=== PATIENT | male | born 1930 | race Caucasian/White ===

== ENCOUNTER 2019-03-23 13:40 | Emergency (ER) | payer OTHER, BC ==
--- OUTSIDE RECORDS SUMMARY | 2019-03-23 13:42 | XMS REPORT ---
:1930 Author Organization eClinicalWorks Care Team Providers Name Role Phone Juan Carrillo Provider Role Unavailable Allergies, Adverse Reactions, Alerts Substance Reaction Event Type N.K.D.A. Info Not Available Non Drug Allergy Problems Problem Type Condition Code Onset Dates Condition Status Assessment Pain of left shoulder joint on M25.512 Active movement Assessment Sprain of left rotator cuff S43.422A Active capsule, initial encounter Medications Medication Code Code Instructions Start End Status Dosage System Date Date Clopidogrel [facility] 57370701984 75 MG Oral Active not Bisulfate defined Lisinopril-Hydr [facility] 44669881393 20-12.5 MG Oral Active not ochlorothiazide defined Simvastatin ND 43447463631 40 MG Oral Active not defined Results No Known Results Summary Purpose eClinicalWorks Submission
--- OUTSIDE RECORDS SUMMARY | 2019-03-23 13:42 | XMS REPORT | Clinical Summary ---
:1930 Author Organization [facility] Address [address] [place] [address] Care Team Providers Name Role Phone Stu Kingston MD Primary Care Provider Allergies Active Allergy Reactions Severity Noted Date Comments No Known Drug Allergies Medications Medication Sig Dispensed Refills Start Date End Date Status risedronate TK ONE T PO 11 11/14/2016 Active (ACTONEL) 150 MG ONCE A MONTH tablet ON AN EMPTY STOMACH WITH 8 OUNCES OF WATER AND DO NOT LAY DOWN FOR ONE HOUR aspirin (ECOTRIN) 81 Take 81 mg by 0 Active MG enteric coated mouth daily. tablet simvastatin (ZOCOR) Take 1 tablet 90 tablet 3 07/10/2018 Active 40 MG (40 mg total) tabletIndications: by mouth Hyperlipidemia, daily. unspecified hyperlipidemia type lisinopril-hydrochlo Take 1 tablet 90 tablet 3 07/10/2018 Active rothiazide by mouth (PRINZIDE,ZESTORETIC daily. 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 clopidogrel (PLAVIX) Take 1 tablet 90 tablet 3 03/13/2017 09/18/2018 Discontinued 75 mg (75 mg total) tabletIndications: by mouth Coronary artery daily. disease involving anvik heart with angina pectoris, unspecified vessel or lesion type (HCC) simvastatin (ZOCOR) Take 1 tablet 90 tablet 3 03/21/2017 03/26/2018 Discontinued 40 MG (40 mg total) tabletIndications: by mouth Hyperlipidemia, daily. unspecified hyperlipidemia type lisinopril-hydrochlo TAKE 1 TABLET 90 tablet 0 03/12/2018 07/10/2018 Discontinued rothiazide BY MOUTH (PRINZIDE,ZESTORETIC EVERY DAY ) 20-12.5 mg per tabletIndications: Essential hypertension simvastatin (ZOCOR) TAKE 1 30 tablet 0 03/26/2018 05/14/2018 Discontinued 40 MG TABLET(40 MG) tabletIndications: BY MOUTH Hyperlipidemia, DAILY unspecified hyperlipidemia type simvastatin (ZOCOR) TAKE 1 TABLET 30 tablet 0 05/14/2018 07/10/2018 Discontinued 40 MG BY MOUTH tabletIndications: DAILY Hyperlipidemia, unspecified hyperlipidemia type lisinopril-hydrochlo TAKE 1 TABLET 30 tablet 0 06/15/2018 07/10/2018 Discontinued rothiazide BY MOUTH (PRINZIDE,ZESTORETIC EVERY DAY ) 20-12.5 mg per tabletIndications: Essential hypertension lisinopril-hydrochlo Take 1 tablet 0 07/10/2018 Discontinued rothiazide by mouth (PRINZIDE,ZESTORETIC daily. ) 20-12.5 mg per tablet Active Problems Problem Noted Date Hyperlipidemia 07/16/2018 Essential hypertension 07/16/2018 Bruit 02/07/2017 Bilateral carotid artery disease 02/07/2017 Encounters Date Type Specialty Care Team Description 09/20/2018 Refill Cardiology Aby Nogueira MA Med Refill 09/18/2018 Refill Cardiology Jose Daniel Abbasi MD Med Refill 07/10/2018 Office Visit Cardiology Jose Daniel Abbasi MD Bilateral carotid artery disease, unspecified type (HCC) (Primary Dx); Essential hypertension; Hyperlipidemia, unspecified hyperlipidemia type 06/15/2018 Refill Cardiology Jose Daniel Abbasi MD Med Refill 05/14/2018 Refill Cardiology Jose Daniel Abbasi MD Med Refill 03/26/2018 Refill Cardiology Jose Daniel Abbasi MD Med Refill after 03/22/2018 Family History Medical History Relation Name Comments No Known Problems Father Alzheimer's disease Mother Relation Name Status Comments Father Mother Social History Tobacco Use Types Packs/Day Years Used Date Former Smoker Cigarettes Smokeless Tobacco: Never Used Comments: 3 yrs ago Alcohol Use Drinks/Week oz/Week Comments Yes Sex Assigned at Date Recorded Not on file Job Start Date Occupation Industry Not on file Not on file Not on file Travel History Travel Start Travel End No recent travel history available. 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 Pulse 71 07/10/2018 11:14 AM SPRAY TECHNICIAN Temperature - - Respiratory Rate - - Oxygen Saturation - - Inhaled Oxygen Concentration - - Weight 52.6 kg (116 lb) 07/10/2018 11:14 AM SPRAY TECHNICIAN Height 152.4 cm (5') 07/10/2018 11:14 AM SPRAY TECHNICIAN Body Mass Index 22.65 07/10/2018 11:14 AM SPRAY TECHNICIAN Plan of Treatment Date Type Specialty Care Team Description 07/09/2019 Office Visit Cardiology Jose Daniel Abbasi MD [address] [address] Health Maintenance Due Date Last Done Comments SHINGLES VACCINES (#1) 1980 65+ PNEUMOCOCCAL VACCINE (1 of 2 - PCV13) 12/03/1995 INFLUENZA VACCINE 04/04/2019 Procedures Procedure Name Priority Date/Time Associated Diagnosis Comments ECG 12-LEAD Routine 07/10/2018 11:07 AM Essential hypertension Results for this SPRAY TECHNICIAN procedure are in the results section. after 03/22/2018 Results ECG 12 lead (07/10/2018 11:07 AM SPRAY TECHNICIAN) Ventricular rate 64 [facility] Atrial rate 64 [facility] WI interval 202 [facility] QRSD interval 82 [facility] QT interval 396 [facility] QTC interval 408 [facility] P axis 1 82 [facility] QRS axis 1 -46 [facility] T wave axis 78 [facility] EKG impression Normal sinus [facility] rhythm-Left axis deviation-Poor R wave progression-Electronica lly Signed By Isael ARZATE, Richard ([id number]) on 07/10/2018 2:18:16 PM Specimen Performing Organization Address City/State/Zipcode Phone Number [facility] [address] [place] [address] after 03/22/2018 Insurance Payer Benefit Plan / Subscriber ID Effective Dates Phone Address Type Group MEDICARE MEDICARE PART A xxxxxxxxxxx 1995-Present [place], [place] Medicare AND B BCBS BCBS CHOICE xxxxxxxxx 2012-Present PPO PPO/[employer] EM[employer] PPO [address] ([address]) [id number] [place] [address] Advance Directives Patient has advance care planning documents on file. For more information, please contact:Ritesh Pichardo[address] [place] [address]
--- NOTE | 2019-03-23 14:43 | ER ---
Nurse's Notes [facility] Name: Aron Tiwari Age: 88 yrs Sex: Male : 1930 Arrival Date: 03/23/2019 Time: 13:43 Bed 19 Private MD: Diagnosis: Skin tear right hand;Skin tear right forearm;Fall on same level from slipping, tripping and stumbling Presentation: 03/23 14:02 Presenting complaint: Patient states: "I was at the grocery store and I tripped I got aj1 two scraps on my arm and I'm on blood thinners" Patient denies hitting his head. skin tears noted to right arm and right hand. Transition of care: patient was not received from another setting of care. Onset of symptoms was March 23, 2019. Risk Assessment: Do you want to hurt yourself or someone else? Patient reports no desire to harm self or others. Initial Sepsis Screen: Does the patient meet any 2 criteria? No. Patient's initial sepsis screen is negative. Does the patient have a suspected source of infection? No. Patient's initial sepsis screen is negative. Care prior to arrival: None. 14:02 Method Of Arrival: Ambulatory aj1 14:02 Acuity: HANNAH 4 aj1 Triage Assessment: 14:11 General: Appears in no apparent distress. comfortable, Behavior is calm, cooperative, aj1 appropriate for age. Pain: Denies pain. Neuro: Level of Consciousness is awake, alert, obeys commands, Oriented to person, place, time, situation. Cardiovascular: Patient's skin is warm and dry. Respiratory: Airway is patent Respiratory effort is even, unlabored, Respiratory pattern is regular, symmetrical. Historical: - Allergies: 14:11 No Known Allergies; aj1 - Home Meds: 14:11 simvastatin 40 mg Oral tab 1 tab once daily [Active]; clopidogrel 75 mg oral tab 1 tab aj1 once daily [Active]; lisinopril-hydrochlorothiazide oral oral [Active]; - PMHx: 14:11 Hypertension; cardiac stent; aj1 - Immunization history:: Flu vaccine is up to date. - Social history:: Smoking status: Patient/guardian denies using tobacco. - Ebola Screening: : Patient denies travel to an Ebola-affected area in the 21 days before illness onset. Screenin:45 Abuse screen: Denies threats or abuse. Nutritional screening: No deficits noted. em Tuberculosis screening: No symptoms or risk factors identified. Fall Risk Fall in past 12 months (25 points). No IV (0 pts). Gait- Weak (10 pts.). Mental Status- Total Haines Fall Scale indicates. Assessment: 14:45 General: Appears in no apparent distress. comfortable, Behavior is calm, cooperative. em Pain: Denies pain. Neuro: Level of Consciousness is awake, alert, obeys commands, Oriented to person, place, time, situation, Moves all extremities. Cardiovascular: Capillary refill < 3 seconds Patient's skin is warm and dry. Respiratory: Airway is patent Respiratory effort is even, unlabored, Respiratory pattern is regular, symmetrical. Derm: Skin is fragile, is thin, has skin tears on right hand, right forearm Skin is pink, warm \\T\\ dry. Musculoskeletal: Capillary refill < 3 seconds, Range of motion: intact in all extremities. 15:00 Reassessment: I agree with the assessment made by Bobo LIZAMA. Vital Signs: 14:11 BP 149 / 57; Pulse 101; Resp 20; Temp 99.2; Pulse Ox 96% on R/A; Weight 47.63 kg (R); aj1 Height 5 ft. 5 in. (165.10 cm) (R); Pain 0/10; 14:11 Body Mass Index 17.47 (47.63 kg, 165.10 cm) aj1 ED Course: 13:43 Patient arrived in ED. mr 14:09 Triage completed. aj1 14:11 Arm band placed on Patient placed in an exam room. aj1 14:14 Lorene Mars FNP-C [facility]. kb 14:15 Gumaro Strong MD is Attending Physician. kb 14:24 Bobo Finley LVN is Primary Nurse. em 14:43 Wound care: to laceration located on right hand and right arm was cleaned with 5 Hibiclens, irrigated with normal saline. 14:45 Patient has correct armband on for positive identification. Bed in low position. Call 5 light in reach. Side rails up X 1. 15:20 Wound care: to skin tears located on right hand and right forearm was dressed with em Neosporin, ABD pads, steri strips, Patient tolerated well. 15:24 No provider procedures requiring assistance completed. Patient did not have IV access em during this emergency room visit. 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 Exp: em 11/24/2020. Lot #: [id number]. } Route: IM; Site: right deltoid; 15:25 Follow up: Response: No adverse reaction em Outcome: 14:43 Discharge ordered by MD. oliver 15:24 Discharged to home ambulatory. em 15:24 Condition: good 15:24 Discharge instructions given to patient, Instructed on discharge instructions, follow up and referral plans. Demonstrated understanding of instructions, follow-up care. 15:26 Patient left the ED. em Signatures: Lorene Mars, WORK COUNSELOR-C WORK COUNSELOR-Ckb Deirdre Galvez RN RN Get Brito RN RN sg Rivera, Mary mr Munoz, Edgar, SOLICITOR PATENT SOLICITOR PATENT Jeannie Goldstein [facility]
--- NOTE | 2019-03-23 14:44 | EDPHYS ---
Physician Documentation [facility] Name: Aron Tiwari Age: 88 yrs Sex: Male : 1930 Arrival Date: 03/23/2019 Time: 13:43 Bed 19 Private MD: ED Physician Gumaro Strong HPI: 03/23 14:32 This 88 yrs old Male presents to ER via Ambulatory with complaints of Fall kb Injury, Laceration To Arm. 14:32 Details of fall: The patient fell from an upright position, while walking. Onset: The kb symptoms/episode began/occurred just prior to arrival. Associated injuries: The patient sustained dorsum of right hand and right forearm, skin tear. Severity of symptoms: At their worst the symptoms were mild, in the emergency department the symptoms are unchanged. The patient has not experienced similar symptoms in the past. The patient has not recently seen a physician. Pt reports he tripped at the grocery store and hit his arm causing skin tears. Came because he is on blood thinners and was worried about the bleeding. . Historical: - Allergies: 14:11 No Known Allergies; aj1 - Home Meds: 14:11 simvastatin 40 mg Oral tab 1 tab once daily [Active]; clopidogrel 75 mg oral tab 1 tab aj1 once daily [Active]; lisinopril-hydrochlorothiazide oral oral [Active]; - PMHx: 14:11 Hypertension; cardiac stent; aj1 - Immunization history:: Flu vaccine is up to date. - Social history:: Smoking status: Patient/guardian denies using tobacco. - Ebola Screening: : Patient denies travel to an Ebola-affected area in the 21 days before illness onset. ROS: 14:30 Constitutional: Negative for fever, chills, and weight loss, Cardiovascular: Negative kb for chest pain, palpitations, and edema, Respiratory: Negative for shortness of breath, cough, wheezing, and pleuritic chest pain, Abdomen/GI: Negative for abdominal pain, nausea, vomiting, diarrhea, and constipation, MS/Extremity: Negative for injury and deformity, Neuro: Negative for headache, weakness, numbness, tingling, and seizure. 14:30 Skin: Positive for of the dorsum of right hand and right forearm, skin tear. Exam: 14:30 Constitutional: This is a well developed, well nourished patient who is awake, alert, kb and in no acute distress. Head/Face: Normocephalic, atraumatic. Neck: Trachea midline, no thyromegaly or masses palpated, and no cervical lymphadenopathy. Supple, full range of motion without nuchal rigidity, or vertebral point tenderness. No Meningismus. Chest/axilla: Normal chest wall appearance and motion. Nontender with no deformity. No lesions are appreciated. Cardiovascular: Regular rate and rhythm with a normal S1 and S2. No gallops, murmurs, or rubs. Normal PMI, no JVD. No pulse deficits. Respiratory: Lungs have equal breath sounds bilaterally, clear to auscultation and percussion. No rales, rhonchi or wheezes noted. No increased work of breathing, no retractions or nasal flaring. Abdomen/GI: Soft, non-tender, with normal bowel sounds. No distension or tympany. No guarding or rebound. No evidence of tenderness throughout. MS/ Extremity: Pulses equal, no cyanosis. Neurovascular intact. Full, normal range of motion. Neuro: Awake and alert, GCS 15, oriented to person, place, time, and situation. Cranial nerves II-XII grossly intact. Motor strength 5/5 in all extremities. Sensory grossly intact. Cerebellar exam normal. Normal gait. 14:30 Skin: injury, skin tears to right forearm and right hand. Bleeding controlled with pressure dressing.. Vital Signs: 14:11 BP 149 / 57; Pulse 101; Resp 20; Temp 99.2; Pulse Ox 96% on R/A; Weight 47.63 kg (R); aj1 Height 5 ft. 5 in. (165.10 cm) (R); Pain 0/10; 14:11 Body Mass Index 17.47 (47.63 kg, 165.10 cm) aj1 MDM: 14:15 Patient medically screened. kb 14:29 Data reviewed: vital signs, nurses notes. Data interpreted: Pulse oximetry: on room air kb is 96 %. Interpretation: normal. Counseling: I had a detailed discussion with the patient and/or guardian regarding: the historical points, exam findings, and any diagnostic results supporting the discharge/admit diagnosis, the need for outpatient follow up, a family practitioner, to return to the emergency department if symptoms worsen or persist or if there are any questions or concerns that arise at home. 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 Exp: em 11/24/2020. Lot #: [id number]. } Route: IM; Site: right deltoid; 15:25 Follow up: Response: No adverse reaction em Disposition: 18:49 Co-signature as Attending Physician, Gumaro Strong MD. Disposition: 03/23/19 14:43 Discharged to Home. Impression: Skin tear right hand, Skin tear right forearm, Fall on same level from slipping, tripping and stumbling. - Condition is Stable. - Discharge Instructions: Skin Tear Care, [id number]. - Medication Reconciliation Form, Thank You Letter, Antibiotic Education, Prescription Opioid Use form. - Follow up: Emergency Department; When: As needed; Reason: Worsening of condition. Follow up: Private Physician; When: 2 - 3 days; Reason: Recheck today's complaints, Continuance of care, Re-evaluation by your physician. Signatures: Lorene Mars, PICKING MACHINE OPERATOR-C PICKING MACHINE OPERATOR-Ckb Deirdre Galvez, RN RN aj1 Bobo Finley, COOK CAMP COOK CAMP em Gumaro Strong MD MD Corrections: (The following items were deleted from the chart) 15:26 14:43 03/23/2019 14:43 Discharged to Home. Impression: Skin tear right hand; Skin tear em right forearm; Fall on same level from slipping, tripping and stumbling. Condition is Stable. Discharge Instructions: Skin Tear Care, [id number]. Forms are Medication Reconciliation Form, Thank You Letter, Antibiotic Education, Prescription Opioid Use. Follow up: Emergency Department; When: As needed; Reason: Worsening of condition. Follow up: Private Physician; When: 2 - 3 days; Reason: Recheck today's complaints, Continuance of care, Re-evaluation by your physician. kb
[2019-03-23] MEDS ORDERED: TETANUS & DIPHTHERIA TOX,ADULT 0.5 ML VIAL ONE (15:00)
== END 2019-03-23 15:26 | disposition home or self-care (01) ==
LOC: ER 13:40
DX: S51.811A Laceration without foreign body of right forearm, initial encounter (principal); W01.10XA Fall on same level from slipping, tripping and stumbling with subsequent striking against unspecified object, initial encounter; Y93.89 Activity, other specified; Y92.512 Supermarket, store or market as the place of occurrence of the external cause; Z23 Encounter for immunization; Z95.818 Presence of other cardiac implants and grafts; I10 Essential (primary) hypertension
CPT/HCPCS: 90471; 90714; 99284

== ENCOUNTER 2019-10-15 20:27 | Inpatient (IN) | payer OTHER, BC ==
--- OUTSIDE RECORDS SUMMARY | 2019-10-15 20:30 | XMS REPORT ---
[...] End Status Dosage System Date Date Clopidogrel [facility] [place] 2] [id number] 75 MG Oral Active not Bisulfate defined Lisinopril-Hydr [facility] [place]NOTE 2] 54171303219 20-12.5 MG Oral Active not ochlorothiazide defined Simvastatin ND 53019678334 40 MG Oral Active not defined Results No Known Results Summary Purpose eClinicalWorks Submission
[2019-10-15] MEDS ORDERED: LIDOCAINE 1% MPF 30 ML VIAL ONE ×2 (20:41→21:39)
[2019-10-15] MEDS ORDERED: MORPHINE 4 MG/ML SYR ONE (20:43)
[2019-10-15] MEDS ORDERED: ONDANSETRON 4 MG/2 ML VIAL ONE (20:51)
[2019-10-15 20:57] LABS: Absolute Lymphocytes (CBC) 6.2 K/uL (0.7-4.9); Basophils % 0.5 % (0-1.3); Hematocrit 30.9 % (39.6-49.0); Lymphocytes % 21.3 % (15.3-44.8); MPV 7.8 fL (7.6-11.3); Protime INR 1.19; RBC Red Blood Cell Count 3.16 M/uL (4.33-5.43)
[2019-10-15 21:10] LABS: ALT/SGPT 11 U/L (12-78); AST/SGOT 32 U/L (15-37); Albumin 2.8 g/dL (3.4-5.0); Alkaline Phosphatase 221 U/L (45-117); BUN Blood Urea Nitrogen 29 mg/dL (7-18); Bicarbonate 21 mmol/L (21-32); Bilirubin Direct 0.1 mg/dL (0-0.2); Bilirubin Total 0.2 mg/dL (0.2-1.0); CKMB Creatine Kinase MB < 1.0 ng/mL (0.3-3.6); Creatine Phosphokinase 84 U/L (39-308); Glucose Level 211 mg/dL (74-106); Lipase 177 U/L (73-393); Magnesium 2.2 mg/dL (1.8-2.4); NT PRO-BNP 925 pg/mL (<450); Potassium 4.3 mmol/L (3.5-5.1); Protein, Total 7.3 g/dL (6.4-8.2); Sodium Level 137 mmol/L (136-145); Troponin (Emerg Dept Use Only) < 0.02 ng/mL (0.0-0.045)
[2019-10-15 21:21] LABS: Platelet Estimate INCR
[2019-10-15 21:22] LABS: Blood Morphology Comment NOTED (NOT SEEN); Burr Cells 2+; Elliptocytes 1+; Platelets, Giant SEEN
--- NOTE | 2019-10-15 22:23 | ER ---
Nurse's Notes [facility] Name: Aron Tiwari Age: 88 yrs Sex: Male : 1930 Arrival Date: 10/15/2019 Time: 20:31 Bed 2 Private MD: Diagnosis: Pneumothorax, unspecified Presentation: 10/15 20:22 Presenting complaint: EMS states: that they were toned for SOB x 2 hrs. Upon their fc arrival pt was "full of fluid" to bilateral lower lungs. Roomair sats 76%. Pt was placed on CPAP and after 1 min lungs were reassessed and pt had "no lung sounds" to right lung. CPAP was stopped and pt placed on NRB for transport. Transition of care: patient was not received from another setting of care. Onset of symptoms was October 15, 2019 at 18:30. Risk Assessment: Do you want to hurt yourself or someone else? Patient reports no desire to harm self or others. Initial Sepsis Screen: Does the patient meet any 2 criteria? RR > 20 per min. HR > 90 bpm. Yes Does the patient have a suspected source of infection? Yes: Other: unknown If YES to both, name of provider notified: Naveed Medina MD Care prior to arrival: IV initiated. 18 GA, in the right forearm, Oxygen administered. via a non-rebreather mask. 20:22 Method Of Arrival: EMS: [facility] 20:22 Acuity: HANNAH 2 Triage Assessment: 20:50 Respiratory: Onset: The symptoms/episode began/occurred suddenly, the patient has jd3 severe shortness of breath. Historical: - Allergies: 21:08 No Known Allergies; fc - Home Meds: 21:08 clopidogrel 75 mg Oral tab 1 tab once daily [Active]; mirtazapine 7.5 mg Oral tab fc nightly [Active]; spironolactone 25 mg Oral tab 1 tab once daily [Active]; tamsulosin 0.4 mg oral cp24 1 cap once daily [Active]; finasteride 5 mg oral tab 1 tab once daily [Active]; - PMHx: 21:08 cardiac stent; Hypertension; BPH; fc - Immunization history:: Adult Immunizations unknown. - Coronavirus screen:: The patient has NOT traveled to [place] in the past 14 days. Proceed with normal triage process as indicated. The patient has NOT had contact with known/suspected case of Coronavirus? Proceed with normal triage procedures. - Social history:: Smoking status: unknown. - Ebola Screening: : Patient negative for fever greater than or equal to 101.5 degrees Fahrenheit, and additional compatible Ebola Virus Disease symptoms Patient denies exposure to infectious person Patient denies travel to an Ebola-affected area in the 21 days before illness onset. Screenin:58 Abuse screen: Denies threats or abuse. Nutritional screening: No deficits noted. fc Tuberculosis screening: No symptoms or risk factors identified. Fall Risk. Assessment: 20:35 General: Appears distressed, uncomfortable, Behavior is cooperative, appropriate for jd3 age, anxious. Pain: Denies pain. Neuro: Level of Consciousness is awake, alert, obeys commands, Oriented to person, place, time, situation. Cardiovascular: Heart tones present Capillary refill < 3 seconds Patient's skin is warm and dry. Rhythm is sinus tachycardia. Respiratory: Reports shortness of breath at rest Airway is patent Respiratory effort is labored, gasping, shallow, Respiratory pattern is tachypnea Breath sounds are clear in left upper lobe and left lower lobe Breath sounds are diminished in right upper lobe, right middle lobe and right lower lobe. GI: No signs and/or symptoms were reported involving the gastrointestinal system. Patient currently denies abdominal pain, diarrhea, nausea, vomiting. : No signs and/or symptoms were reported regarding the genitourinary system. EENT: No signs and/or symptoms were reported regarding the EENT system. Derm: Skin is intact, Skin is dry, Skin is normal, Skin temperature is warm. Musculoskeletal: Circulation, motion, and sensation intact. Range of motion: intact in all extremities. 21:00 Reassessment: assisted Dr. Medina and Dr. Pierce with chest tube insertion. jd3 21:15 Reassessment: Patient and/or family updated on plan of care and expected duration. Pain jd3 level reassessed. pt appears less distressed. reporting some relief from shortness of breath. pt still having tachypnea. improved oxygenation saturation. Patient states feeling better. 21:17 Respiratory: Airway is patent Respiratory effort is even, unlabored, Respiratory jd3 pattern is regular, symmetrical, Breath sounds are clear bilaterally. 21:45 Reassessment: Dr. Medina and nurse at bedside readjusting chest tube length. jd3 21:55 Reassessment: Patient appears in no apparent distress at this time. Patient and/or jd3 family updated on plan of care and expected duration. Pain level reassessed. Patient is alert, oriented x 3, equal unlabored respirations, skin warm/dry/pink. pt reports feeling he can breath normally. 22:45 Reassessment: Patient appears in no apparent distress at this time. No changes from jd3 previously documented assessment. Patient and/or family updated on plan of care and expected duration. Pain level reassessed. Patient is alert, oriented x 3, equal unlabored respirations, skin warm/dry/pink. 23:52 Reassessment: Patient appears in no apparent distress at this time. Patient and/or jd3 family updated on plan of care and expected duration. Pain level reassessed. Patient is alert, oriented x 3, equal unlabored respirations, skin warm/dry/pink. Patient states feeling better. 10/16 00:19 Reassessment: Patient appears in no apparent distress at this time. Patient and/or jd3 family updated on plan of care and expected duration. Pain level reassessed. Patient is alert, oriented x 3, equal unlabored respirations, skin warm/dry/pink. awaiting call from floor nurse. chest tube in place with clean accusive dressing intact. chest tube connected to chest tube suction with no leaking noted. no bleeding noted. Patient states feeling better. Vital Signs: 10/15 20:22 BP 148 / 64; Pulse 122; Resp 28; Temp 97.0(TE); Pulse Ox 90% on 100% Non-rebreather fc mask; Weight 54.43 kg (R); Height 5 ft. 6 in. (167.64 cm) (R); Pain 0/10; 20:45 BP 147 / 66; Pulse 121; Resp 25 S; Pulse Ox 94% on Non-rebreather mask; jd3 20:54 BP 131 / 57; Pulse 118; Resp 23 S; Pulse Ox 100% on 2 lpm NC; jd3 21:15 BP 159 / 69; Pulse 105; Resp 24 S; Pulse Ox 100% on 2 lpm NC; jd3 21:45 BP 147 / 61; Pulse 107; Resp 25 S; Pulse Ox 100% on 2 lpm NC; jd3 22:15 BP 149 / 60; Pulse 106; Resp 21 S; Pulse Ox 100% on 2 lpm NC; jd3 22:48 BP 125 / 59; Pulse 100; Resp 18 S; Pulse Ox 99% on 2 lpm NC; Pain 0/10; jd3 23:52 BP 114 / 60; Pulse 93; Resp 17 S; Pulse Ox 100% on 2 lpm NC; jd3 10/16 00:24 BP 127 / 62; Pulse 88; Resp 18 S; Pulse Ox 100% on 2 lpm NC; jd3 00:45 BP 116 / 54; Pulse 80; Resp 17 S; Pulse Ox 100% on 2 lpm NC; jd3 10/15 20:22 Body Mass Index 19.37 (54.43 kg, 167.64 cm) fc ED Course: 10/15 20:22 Arm band placed on Patient placed in an exam room, on a stretcher. fc 20:31 Patient arrived in ED. fc 20:31 Naveed Medina MD is Attending Physician. tw4 20:33 Bassem Kerns RN is Primary Nurse. jd3 20:50 Maintain EMS IV. Dressing intact. Good blood return noted. Site clean \\T\\ dry. Gauge \\T\\ patti 3 site: 18 G to right FA. 20:50 Inserted saline lock: 20 gauge in left antecubital area, using aseptic technique. Blood jd3 collected. placed by Franny HAWK. 20:57 Triage completed. fc 20:58 Patient has correct armband on for positive identification. Placed in gown. Bed in low fc position. Side rails up X2. vfx artist on. Pulse ox on. NIBP on. 21:00 Assist provider with chest tube insertion with 24 Fr. in right lateral chest wall. Tray jd3 was set up. Attached to pleur-e-vac. Chest tube inserted by Naveed Medina MD Placement verified by CXR, fluctuation of fluid, return of air, Dressed with Vaseline gauze, foam tape, 4X4s, Patient tolerated well. 21:01 Notified ED physician of a critical lab result(s). WBC 29.2. fc 22:21 Stu Kingston MD is Hospitalizing Provider. tw4 10/16 01:25 Patient admitted, IV remains in place. jd3 Administered Medications: 10/15 20:50 Drug: morphine 4 mg Route: IVP; Site: left antecubital; jd3 21:50 Follow up: Response: No adverse reaction; RASS: Alert and Calm (0) jd3 20:50 Drug: Zofran 4 mg Route: IVP; Site: left antecubital; jd3 21:50 Follow up: Response: No adverse reaction jd3 20:55 Drug: Lidocaine (1 %) 1 vials Volume: 20 ml; Route: Infiltration; jd3 21:55 Follow up: Response: No adverse reaction jd3 23:14 Drug: Rocephin - (cefTRIAXone) 1 grams {Note: given slow IV push per verbal order by jvladimir Medina..} Route: IVPB; Infused Over: 30 mins; Site: left antecubital; 23:16 Follow up: Response: No adverse reaction; IV Status: Completed infusion; IV Intake: [id number] 23:17 Drug: AZITHromycin 500 mg Route: IVPB; Infused Over: 1 hrs; Site: left antecubital; jd3 10/16 00:17 Follow up: Response: No adverse reaction; IV Status: Completed infusion; IV Intake: jd3 250ml Point of Care Testing: Blood Glucose: 10/15 20:32 Blood Glucose: 199 mg/dL; fc Ranges: Intake: 23:16 IV: 10ml; Total: 10ml. jd3 10/16 00:17 IV: 250ml; Total: 260ml. j Outcome: 10/15 22:22 Decision to Hospitalize by Provider. tw4 10/16 01:25 Admitted to Med/surg accompanied by nurse, via stretcher, room 424, on monitor, with magali chart, Report called to Sally HAWK Condition: stable Instructed on the need for admit, Demonstrated understanding of instructions. 01:41 Patient left the ED. jd3 Signatures: Elvira Macdonald RN RN Bassem Khoury RN RN Naveed Chapa MD MD tw4 Corrections: (The following items were deleted from the chart) 01:40 01:39 Condition: stable jvladimir j 01:40 01:39 Admitted to Med/surg accompanied by nurse, via stretcher, room 424, on monitor, jd3 with chart, Report called to Sally HAWK jd3 01:40 01:39 Instructed on the need for admit, Demonstrated understanding of instructions, [facility] j 01:41 01:40 BP 116 / 54; Pulse 80bpm; Resp 17bpm; Spontaneous; Pulse Ox 100% 2 lpm Nasal jd3 Cannula; jd3
--- NOTE | 2019-10-15 22:24 | EDPHYS ---
Physician Documentation [facility] Name: Aron Tiwari Age: 88 yrs Sex: Male : 1930 Arrival Date: 10/15/2019 Time: 20:31 Bed 2 Private MD: ED Physician Naveed Medina HPI: 10/16 04:45 This 88 yrs old Male presents to ER via EMS with complaints of Shortness Of tw4 Breath. 04:45 The patient has shortness of breath at rest. Onset: The symptoms/episode began/occurred tw4 today. 04:45 Duration: The symptoms are continuous, and are steadily getting worse. The patient's tw4 shortness of breath has no apparent modifying factors. Associated signs and symptoms: The patient has no apparent associated signs or symptoms. Severity of symptoms: At their worst the symptoms were moderate in the emergency department the symptoms are unchanged. The patient has not experienced similar symptoms in the past. Historical: - Allergies: 10/15 21:08 No Known Allergies; fc - Home Meds: 21:08 clopidogrel 75 mg Oral tab 1 tab once daily [Active]; mirtazapine 7.5 mg Oral tab fc nightly [Active]; spironolactone 25 mg Oral tab 1 tab once daily [Active]; tamsulosin 0.4 mg oral cp24 1 cap once daily [Active]; finasteride 5 mg oral tab 1 tab once daily [Active]; - PMHx: 21:08 cardiac stent; Hypertension; BPH; fc - Immunization history:: Adult Immunizations unknown. - Coronavirus screen:: The patient has NOT traveled to [place] in the past 14 days. Proceed with normal triage process as indicated. The patient has NOT had contact with known/suspected case of Coronavirus? Proceed with normal triage procedures. - Social history:: Smoking status: unknown. - Ebola Screening: : Patient negative for fever greater than or equal to 101.5 degrees Fahrenheit, and additional compatible Ebola Virus Disease symptoms Patient denies exposure to infectious person Patient denies travel to an Ebola-affected area in the 21 days before illness onset. ROS: 10/16 04:45 Constitutional: Negative for fever, chills, and weight loss, Eyes: Negative for injury, tw4 pain, redness, and discharge, Cardiovascular: Negative for chest pain, palpitations, and edema, Abdomen/GI: Negative for abdominal pain, nausea, vomiting, diarrhea, and constipation, Back: Negative for injury and pain, MS/Extremity: Negative for injury and deformity, Skin: Negative for injury, rash, and discoloration, Neuro: Negative for headache, weakness, numbness, tingling, and seizure. Respiratory: Positive for shortness of breath, Negative for cough, dyspnea on exertion, hemoptysis, orthopnea, pleurisy. Exam: 04:45 Constitutional: This is a well developed, well nourished patient who is awake, alert, tw4 and in no acute distress. Head/Face: Normocephalic, atraumatic. Chest/axilla: Normal chest wall appearance and motion. Nontender with no deformity. No lesions are appreciated. Cardiovascular: Regular rate and rhythm with a normal S1 and S2. No gallops, murmurs, or rubs. Normal PMI, no JVD. No pulse deficits. Abdomen/GI: Soft, non-tender, with normal bowel sounds. No distension or tympany. No guarding or rebound. No evidence of tenderness throughout. Back: No spinal tenderness. No costovertebral tenderness. Full range of motion. Skin: Warm, dry with normal turgor. Normal color with no rashes, no lesions, and no evidence of cellulitis. MS/ Extremity: Pulses equal, no cyanosis. Neurovascular intact. Full, normal range of motion. Neuro: Awake and alert, GCS 15, oriented to person, place, time, and situation. Cranial nerves II-XII grossly intact. Motor strength 5/5 in all extremities. Sensory grossly intact. Cerebellar exam normal. Normal gait. 04:45 Respiratory: moderate respiratory distress is noted, Respirations: labored breathing, Breath sounds: decreased breath sounds, that are severe, are heard in the right posterior upper lobe, right posterior middle lobe and right posterior lower lobe. Vital Signs: 10/15 20:22 BP 148 / 64; Pulse 122; Resp 28; Temp 97.0(TE); Pulse Ox 90% on 100% Non-rebreather fc mask; Weight 54.43 kg (R); Height 5 ft. 6 in. (167.64 cm) (R); Pain 0/10; 20:45 BP 147 / 66; Pulse 121; Resp 25 S; Pulse Ox 94% on Non-rebreather mask; jd3 20:54 BP 131 / 57; Pulse 118; Resp 23 S; Pulse Ox 100% on 2 lpm NC; jd3 21:15 BP 159 / 69; Pulse 105; Resp 24 S; Pulse Ox 100% on 2 lpm NC; jd3 21:45 BP 147 / 61; Pulse 107; Resp 25 S; Pulse Ox 100% on 2 lpm NC; jd3 22:15 BP 149 / 60; Pulse 106; Resp 21 S; Pulse Ox 100% on 2 lpm NC; jd3 22:48 BP 125 / 59; Pulse 100; Resp 18 S; Pulse Ox 99% on 2 lpm NC; Pain 0/10; jd3 23:52 BP 114 / 60; Pulse 93; Resp 17 S; Pulse Ox 100% on 2 lpm NC; jd3 10/16 00:24 BP 127 / 62; Pulse 88; Resp 18 S; Pulse Ox 100% on 2 lpm NC; jd3 00:45 BP 116 / 54; Pulse 80; Resp 17 S; Pulse Ox 100% on 2 lpm NC; jd3 10/15 20:22 Body Mass Index 19.37 (54.43 kg, 167.64 cm) fc Procedures: 04:45 Chest tube insertion: the site was prepped using Betadine, in sterile fashion, Tube tw4 size: a 24 martiniquais chest tube was inserted, introduced in right lateral chest wall, to pleur-e-vac, dressed with vaseline gauze, foam tape, 4x4s, the patient tolerated the procedure well. MDM: 10/15 20:31 Patient medically screened. tw4 10/16 04:45 Differential diagnosis: Anemia Anxiety Reaction Bronchitis CHF exacerbation, Myocardial tw4 Infarction pneumonia, Pneumothorax pulmonary edema, Pulmonary Embolism reactive airway disease, Unstable Angina. Antibiotic administration: Rocephin and Zithromax given. Data reviewed: vital signs, nurses notes, lab test result(s), cardiac enzymes, CBC, electrolytes, hepatic panel, EKG, radiologic studies, CT scan. Data interpreted: Pulse oximetry: Interpretation: hypoxia. Plan: O2 by Mask applied. Test interpretation: by ED physician or midlevel provider: ECG, plain radiologic studies. Counseling: I had a detailed discussion with the patient and/or guardian regarding: the historical points, exam findings, and any diagnostic results supporting the discharge/admit diagnosis, lab results, radiology results. Medication response: albuterol nebulizer treatment(s) markedly relieved the patient's wheezing. Response to treatment: the patient's symptoms have markedly improved after treatment, and as a result, I will admit patient. Physician consultation: Stu Kingston MD was called at 21:30, was contacted at 21:40, regarding admission, to the telemetry unit. patient's condition, and will see patient in inpatient room, would like consultation with . DR HERRERA D/W JAVIER AT [id number]. Admission orders: after a detailed discussion of the patient's condition and case, the admit orders are written by me. ED course: Patient's initial; xray revealed large right sided pneumothorax. No evidence of tension. Placed a 24 F tube in the right lateral intercostal space at T4. Pt tolerated procedure well. Post chest tube X-ray revealed tube in apices of lung. Chest retracted approximately 15 cm. Pt states that he felt better. 10/15 20:32 Order name: Blood Culture Adult (2) 10/15 20:32 Order name: BMP 10/15 20:32 Order name: CBC with Diff 10/15 20:32 Order name: Ckmb 10/15 20:32 Order name: CPK 10/15 20:32 Order name: Hepatic Function 10/15 20:32 Order name: Lipase 10/15 20:32 Order name: Magnesium 10/15 20:32 Order name: NT PRO-BNP 10/15 20:32 Order name: PT-INR 10/15 20:32 Order name: Ptt, Activated 10/15 20:32 Order name: Troponin (emerg Dept Use Only) 10/15 20:45 Order name: Glucose, Ancillary Testing; Complete Time: 21:08 EDMS 10/15 21:09 Interpretation: Normal except: GLUC,ANCIL 199. 10/15 21:01 Order name: Protime (+INR); Complete Time: 21:08 EDMS 10/15 21:09 Interpretation: Normal except: PT 14.0. 10/15 20:32 Order name: CXR XRAY 10/15 21:01 Order name: PTT, Activated Partial Thromb; Complete Time: 21:08 EDMS 10/15 21:02 Order name: CBC with Automated Diff [facility] 10/15 21:09 Interpretation: Normal except: WBC 29.2; RBC 3.16; HGB 10.0; HCT 30.9; PLT 575; RDW tw4 15.4; NEUT A 20.7. 10/15 21:06 Order name: CXR XRAY [facility] 10/15 21:11 Order name: Basic Metabolic Panel [facility] 10/15 21:11 Order name: Liver (Hepatic) Function [facility] 10/15 21:11 Order name: Creatine Phosphokinase [facility] 10/15 21:11 Order name: CKMB Creatine Kinase MB [facility] 10/15 21:11 Order name: Troponin (Emerg Dept Use Only) [facility] 10/15 21:11 Order name: NT PRO-BNP [facility] 10/15 21:11 Order name: Magnesium [facility] 10/15 21:11 Order name: Lipase [facility] 10/15 21:23 Order name: Manual Differential [facility] 10/15 21:51 Order name: CXR XRAY [facility] 10/15 20:32 Order name: EKG; Complete Time: 20:33 tw4 10/15 20:32 Order name: Cardiac monitoring; Complete Time: 20:33 tw4 10/15 20:32 Order name: EKG - Nurse/Tech; Complete Time: 20:33 tw4 10/15 20:32 Order name: IV Saline Lock; Complete Time: 20:34 tw4 10/15 20:32 Order name: Labs collected and sent; Complete Time: 20:34 tw4 10/15 20:32 Order name: O2 Per Protocol; Complete Time: 20:34 tw 10/15 20:32 Order name: O2 Sat Monitoring; Complete Time: 20:34 tw4 Administered Medications: 10/15 20:50 Drug: morphine 4 mg Route: IVP; Site: left antecubital; jd3 21:50 Follow up: Response: No adverse reaction; RASS: Alert and Calm (0) jd3 20:50 Drug: Zofran 4 mg Route: IVP; Site: left antecubital; jd3 21:50 Follow up: Response: No adverse reaction jd3 20:55 Drug: Lidocaine (1 %) 1 vials Volume: 20 ml; Route: Infiltration; jd3 21:55 Follow up: Response: No adverse reaction jd3 23:14 Drug: Rocephin - (cefTRIAXone) 1 grams {Note: given slow IV push per verbal order by [facility] Dr. Medina..} Route: IVPB; Infused Over: 30 mins; Site: left antecubital; 23:16 Follow up: Response: No adverse reaction; IV Status: Completed infusion; IV Intake: [id number] 23:17 Drug: AZITHromycin 500 mg Route: IVPB; Infused Over: 1 hrs; Site: left antecubital; [facility] 10/16 00:17 Follow up: Response: No adverse reaction; IV Status: Completed infusion; IV Intake: jd3 250ml Point of Care Testing: Blood Glucose: 10/15 20:32 Blood Glucose: 199 mg/dL; Ranges: Critical Glucose Levels:Adult <50 mg/dl or >400 mg/dl <40 mg/dl or >180 mg/dl Disposition: 10/16 04:50 Critical Care:. tw4 Disposition: 10/15/19 22:22 Hospitalization ordered by Stu Kingston for Inpatient Admission. Preliminary diagnosis is Pneumothorax, unspecified. - Bed requested for Telemetry/MedSurg (Inpatient). - Status is Inpatient Admission. jd3 - Condition is Stable. - Problem is new. - Symptoms have improved. Critical care time excluding procedures: 04:50 Critical care time: Bedside Care: 40 minutes, Consultation: 5 minutes. Total time: 45 tw4 minutes Signatures: Dispatcher [employer] EDElvira Del Toro RN RN Cintia Toscano RN RN cg Davies, Jonathon, RN RN Naveed Gonzalez MD MD tw4 Corrections: (The following items were deleted from the chart) 10/15 23:02 22:22 Hospitalization Ordered by Stu Kingston MD for Inpatient Admission. Preliminary cg diagnosis is Pneumothorax, unspecified. Bed requested for Telemetry/MedSurg (Inpatient). Status is Inpatient Admission. Condition is Stable. Problem is new. Symptoms have improved. tw4 10/16 01:41 10/15 23:02 10/15/2019 22:22 Hospitalization Ordered by Stu Kingston MD for Inpatient jd3 Admission. Preliminary diagnosis is Pneumothorax, unspecified. Bed requested for Telemetry/MedSurg (Inpatient). Status is Inpatient Admission. Condition is Stable. Problem is new. Symptoms have improved. cg
[2019-10-15] MEDS ORDERED: ALBUTEROL 2.5 MG/3 ML NEB SOL NEB PRN (22:28)
[2019-10-15] MEDS ORDERED: NA CHLORIDE 0.9% 250 ML ONE (23:06)
[2019-10-15] MEDS ORDERED: AZITHROMYCIN 500 MG INJ IVPB ONE (23:06)
[2019-10-15] MEDS ORDERED: CEFTRIAXONE/SWI 1gm 1 GM/10 ML SYR ONE (23:06)
[2019-10-15] MEDS ORDERED: INSULIN -REGULAR HUMAN 50 UNIT/0.5 ML ML ONE (23:49)
--- NOTE | 2019-10-16 07:43 | RAD REPORT ---
EXAM DESCRIPTION: RAD - Chest Single View - 10/15/2019 9:19 pm CLINICAL HISTORY: SOB COMPARISON: No comparisons TECHNIQUE: AP portable chest image was obtained 10/15/2019 9:19 pm . FINDINGS: Patient has underlying interstitial fibrotic change. There is a large right-sided pneumoth orax approximately 60%. There is fibrotic lung parenchyma adherent to the right lateral pleural surfa ce. No left-sided pneumothorax. Trachea remains midline. Heart and vasculature are normal. No pleural fluid collection. No acute bony abnormality seen. No acute aortic findings suspected. IMPRESSION: Large 60% or greater right-sided pneumothorax. Partially collapsed lung parenchyma is adherent to the right lateral pleural surface. Underlying fibrosis.
--- NOTE | 2019-10-16 07:48 | RAD REPORT ---
EXAM DESCRIPTION: RAD - Chest Single View - 10/15/2019 9:19 pm CLINICAL HISTORY: s/p chest tube, pneumothorax treatment COMPARISON: Chest Single View dated 10/15/2019 TECHNIQUE: AP portable chest image was obtained 10/15/2019 9:19 pm . FINDINGS: Large bore chest tube has been placed. Tip of chest tube is in the right apex. Tubing curl s to the midline right mid chest as well. Pneumothorax has almost fully resolved. There is a small apical component present. Additional anterio r pneumothorax could be present an occult on a supine portable exam. No new left lung field finding. Heart and vasculature are normal. No acute bony abnormality seen. No acute aortic findings suspected. IMPRESSION: Chest tube has been placed on the right with the tip of the chest tube in the apex. Pneumothorax has mostly resolved. There is a small apical component remaining. Anterior pneumothorax component could be occult on a portable supine chest film.
--- NOTE | 2019-10-16 07:49 | RAD REPORT ---
EXAM DESCRIPTION: RAD - Chest Single View - 10/15/2019 9:58 pm CLINICAL HISTORY: POST CHEST TUBE, pneumothorax on the right COMPARISON: Chest Single View dated 10/15/2019; Chest Single View dated 10/15/2019Portable chest Febru yonatan , portable chest October 15 TECHNIQUE: AP portable chest image was obtained 10/15/2019 9:58 pm . FINDINGS: Chest 2 appears to been pulled back slightly. Subcutaneous emphysema has not changed. Smal l apical pneumothorax remains. Additional anterior pneumothorax could be present an occult. No pulmonary contusion or acute lung parenchymal process. IMPRESSION: Remnant right apical pneumothorax is still present. Chest tube has been pulled back slightly. Tip remains in the apex.
--- NOTE | 2019-10-16 08:53 | EKG ---
Test Date: 2019-10-15 Test Time: 20:26:55 [employer]ist Home Keeper: LINDA MEASUREMENT RESULTS: Intervals: Rate: 123 PA: 200 QRSD: 84 QT: 378 QTc: 541 [place]: P: 98 PA: 200 QRS: 77 T: 89 INTERPRETIVE STATEMENTS: Sinus tachycardia Septal infarct, age undetermined Abnormal ECG Compared to ECG 01/23/2013 09:02:34 Myocardial infarct finding now present Sinus bradycardia no longer present Electronically Signed On 10-16-19 08:52:32 SPICE GRINDER by Raphael Matthews
[2019-10-16] MEDS: CEFTRIAXONE/SWI 1gm 1 GM/10 ML SYR IV SCH ×2 (08:56→20:35)
[2019-10-16] MEDS ORDERED: CEFTRIAXONE 1 GM/NS 50 ML 1 GM/50 ML BAG IV SCH (09:00)
[2019-10-16] MEDS: ARFORMOTEROL TARTRATE 15 MCG/2 ML VIAL.NEB NEB SCH ×2 (11:57→21:21)
--- NOTE | 2019-10-16 11:59 | P.CNS ---
Date of Consult: 10/16/19 Reason for Consult: Pneumothorax Chief Complaint: Pneumothorax shortness of breath History of Present Illness: Patient is 88 years of age admitted with acute onset of shortness of breath admitted to the emergency room was found to have a complete pneumothorax on the right side in emergency chest tube was inserted by the emergency room doctor and he is doing much better now animal discomfort on the right side he is a former heavy smoker this x-ray consistent with COPD as not take any inhalers bronchodilators or oxygen at home history of coronary artery disease Allergies No Known Allergies Allergy (Verified 10/16/19 01:13) Home Medications: Aspirin 81 mg PO DAILY 10/16/19 Clopidogrel Bisulfate [Plavix*] 75 mg PO DAILY 10/16/19 Finasteride [Proscar*] 5 mg PO DAILY 10/16/19 Mirtazapine 7.5 mg PO BEDTIME 10/16/19 Spironolactone 25 mg PO DAILY 10/16/19 Tamsulosin [Flomax*] 0.4 mg PO BEDTIME 10/16/19 - Past Medical/Surgical History Diabetic: No -: htn -: bph -: pneumonia -: Coronary artery disease -: tonsillectomy -: cardiac stent -: bilateral cataract sx - Family History Father Medical History: Cancer Notes: stomach cancer Mother Notes: alzheimers - Social History Alcohol use: Yes CD- Drugs: No Caffeine use: Yes Place of Residence: Home Review of Systems 10-point ROS is otherwise unremarkable Physical Examination Temp Pulse Resp BP Pulse Ox 97.2 F 80 18 148/67 H 100 10/16/19 08:00 10/16/19 08:00 10/16/19 08:00 10/16/19 08:00 10/16/19 08:00 General: Alert, In no apparent distress, Oriented x3 Respiratory: Clear to auscultation bilaterally, Diminished Cardiovascular: No edema, Regular rate/rhythm, Normal S1 S2 Gastrointestinal: Normal bowel sounds, Soft and benign Musculoskeletal: No clubbing, No swelling Laboratory Data (last 24 hrs) 10/15/19 20:30: PT 14.0 H, INR 1.19, APTT 30.3 10/15/19 20:30: WBC 29.2 H*, Hgb 10.0 L, Hct 30.9 L, Plt Count 575 H 10/15/19 20:30: Sodium 137, Potassium 4.3, BUN 29 H, Creatinine 1.50 H, Glucose 211 H, Magnesium 2.2, Total Bilirubin 0.2, AST 32, ALT 11 L, Alkaline Phosphatase 221 H, Lipase 177 - Problems (1) Pneumothorax Current Visit: Yes Status: Acute Plan: Patient is 88 years of age admitted with spontaneous pneumothorax of the right lung status post chest tube insertion he is doing much better lung appears to be expanded minimal apical pneumothorax [place] still has an air leak continue chest tube on suction the benefit from pleurodesis I have also ordered a CT scan of the chest patient has chronic renal insufficiency elevated white count no evidence of sepsis there is no evidence of sepsis Dc Zithromax continue with Rocephin chest x-rays consistent with COPD Qualifiers: Pneumothorax type: spontaneous, primary Qualified Code(s): J93.11 - Primary spontaneous pneumothorax
[2019-10-16 12:29] LABS: Absolute Lymphocytes (CBC) 1.4 K/uL (0.7-4.9); Basophils % 0.3 % (0-1.3); Hematocrit 28.8 % (39.6-49.0); Lymphocytes % 7.6 % (15.3-44.8); MPV 7.8 fL (7.6-11.3); RBC Red Blood Cell Count 3.03 M/uL (4.33-5.43)
--- NOTE | 2019-10-16 14:22 | RAD REPORT ---
EXAM DESCRIPTION: CT - Thorax Wo Con - 10/16/2019 1:59 pm CLINICAL HISTORY: Pneumothorax, chest tube COMPARISON: None. TECHNIQUE: Axial 5 mm thick images of the chest were obtained without IV contrast. All CT scans are performed using dose optimization technique as appropriate and may include automated exposure control or mA/KV adjustment according to patient size. FINDINGS: A chest tube is in place entering the fourth inner costal space along the lateral chest. T ubing extends into the anterior aspect of the thoracic cavity extending superiorly to the apex. Anter ior pneumothorax persist approximately 40%. There is some pneumothorax in the medial gutter and right apex. In the lateral aspect of the right upper lobe there is a 10 millimeter subpleural spiculated nodule. The lung parenchyma appears adherent to the chest wall in this location. There is an adjacent 2.2 glory timeter bulla or cystic cavity also subpleural in location. No other mass or nodule identified. There is partial atelectasis of the right lower lobe. No pleural thickening or pleural effusion. No pneumothorax on the left. In the posterior mid left upper lobe at the hilum there is a spiculated area of parenchyma 19 mm in size. There is some tenting or deformity of the fissure were the mass abu ts. Partial atelectasis present in the posterior gutter on the left. No abnormal mediastinal or hilar masses or lymphadenopathy seen. No gross aortic or pulmonary artery finding suspected. Assessment is limited in the absence of IV contrast. No chest wall mass. Subcutaneous emphysema is present along the lateral right chest more prominent th an earlier chest films. IMPRESSION: Approximately 40% right pneumothorax is still present along the anterior aspect of the c hest. This is more difficult to monitor on portable examination. Right-sided chest tube is in place entering the fourth inner costal space. Tip is in the apex. Subcutaneous emphysema is present increasing from the earlier chest films. A 10 millimeter spiculated subpleural nodule is present lateral right upper lobe with adjacent 2 cent imeter subpleural bulla. Lung parenchyma is tethered to the lateral chest wall at this location. A spiculated 19 millimeter area of parenchyma in the left upper lobe near the hilum. The 2 areas of spiculation are nonspecific. Scarring and malignant etiologies are both possible.
[2019-10-16] MEDS: predniSONE 20 MG TAB PO SCH ×2 (14:30→20:34)
--- NOTE | 2019-10-16 18:13 | P.HP ---
Certification for Inpatient Patient admitted to: Inpatient With expected LOS: >2 Midnights Practitioner: I am a practitioner with admitting privileges, knowledge of patient current condition, hospital course, and medical plan of care. Services: Services provided to patient in accordance with Admission requirements found in Title 42 Section 412.3 of the Code of Federal Regulations Patient History Date of Service: 10/16/19 Reason for admission: Pneumothorax shortness of breath History of Present Illness: MR. NEAL IS A PATIENT WHO IS WELL KNOWN TO ME HAS HISTORY OF COPD, CAD, CACHEXIA FROM AGING COMES WITH SUDDEN DYSPNEA. HE WAS FOUND TO HAVE R SIDE PNEUMOTHORAX. THERE IS NO HISTORY OF INJURY. HE HAS CHEST TUBE NOW AND IS FEELING LOT BETTER. Allergies No Known Allergies Allergy (Verified 10/16/19 01:13) Home Medications: Aspirin 81 mg PO DAILY 10/16/19 Clopidogrel Bisulfate [Plavix*] 75 mg PO DAILY 10/16/19 Finasteride [Proscar*] 5 mg PO DAILY 10/16/19 Mirtazapine 7.5 mg PO BEDTIME 10/16/19 Spironolactone 25 mg PO DAILY 10/16/19 Tamsulosin [Flomax*] 0.4 mg PO BEDTIME 10/16/19 - Past Medical/Surgical History Has patient received pneumonia vaccine in the past: Yes Diabetic: No -: htn -: bph -: pneumonia -: Coronary artery disease -: tonsillectomy -: cardiac stent -: bilateral cataract sx - Family History Father -: Cancer Notes: stomach cancer Mother Notes: alzheimers - Social History Smoking Status: Former smoker Alcohol use: Yes CD- Drugs: No Caffeine use: Yes Place of Residence: Home Review of Systems 10-point ROS is otherwise unremarkable Physical Examination - Vital Signs Temperature: 98.0 F Blood Pressure: 198/86 Pulse: 85 Respirations: 18 Pulse Ox (%): 100 - Physical Exam General: Alert, Cachectic, Mild distress HEENT: Atraumatic, PERRLA, Mucous membr. moist/pink, EOMI, Sclerae nonicteric Neck: Supple, 2+ carotid pulse no bruit, No LAD, Without JVD or thyroid abnormality Respiratory: Clear to auscultation bilaterally, Normal air movement Cardiovascular: Regular rate/rhythm, Normal S1 S2 Gastrointestinal: Normal bowel sounds, No tenderness Musculoskeletal: No tenderness Integumentary: No rashes Neurological: Normal gait, Normal speech, Normal strength at 5/5 x4 extr, Normal tone, Normal affect Lymphatics: No axilla or inguinal lymphadenopathy - Studies Laboratory Data (last 24 hrs) 10/15/19 20:30: PT 14.0 H, INR 1.19, APTT 30.3 10/15/19 20:30: WBC 29.2 H*, Hgb 10.0 L, Hct 30.9 L, Plt Count 575 H 10/15/19 20:30: Sodium 137, Potassium 4.3, BUN 29 H, Creatinine 1.50 H, Glucose 211 H, Magnesium 2.2, Total Bilirubin 0.2, AST 32, ALT 11 L, Alkaline Phosphatase 221 H, Lipase 177 Assessment and Plan - Problems (Diagnosis) (1) CAD (coronary artery disease) Current Visit: Yes Status: Chronic Plan: STABLE RESUME PLAVIX. Qualifiers: Coronary Disease-Associated Artery/Lesion type: [place] artery (2) COPD (chronic obstructive pulmonary disease) Current Visit: Yes Status: Chronic Plan: STABLE, RESUME NEBS. (3) BPH (benign prostatic hyperplasia) Current Visit: Yes Status: Chronic Qualifiers: Lower urinary tract symptom presence: symptoms absent Qualified Code(s): N40.0 - Benign prostatic hyperplasia without lower urinary tract symptoms (4) Cachexia Current Visit: Yes Status: Chronic Plan: AGE RELATED. (5) Pneumothorax Current Visit: Yes Status: Acute Plan: CHEST TUBE. ABX WBC IS HIGH MOST LIKELY RELATED TO TRAUMA AND NOT INFECTION. Qualifiers: Pneumothorax type: spontaneous, primary Qualified Code(s): J93.11 - Primary spontaneous pneumothorax - Advance Directives Does patient have a Living Will: No Does patient have a Durable POA for Healthcare: No
[2019-10-16] MEDS: METOPROLOL TAR 25 MG TAB PO SCH (18:30)
[2019-10-16] MEDS: TAMSULOSIN 0.4 MG SR CAP PO SCH (20:34)
[2019-10-16] MEDS: MIRTAZAPINE 15 MG TAB PO SCH (20:34)
[2019-10-16] MEDS ORDERED: AZITHROMYCIN IV 500 MG in NA CHLORIDE 0.9% 250 ML IVPB SCH (21:00)
[2019-10-16] MEDS ORDERED: HOME MED 1 EA UNK (Mirtazapine [Mirtazapine] 7.5 MG) PO SCH (21:00)
[2019-10-17] MEDS: METOPROLOL TAR 25 MG TAB PO SCH ×2 (04:58→17:22)
[2019-10-17 05:54] LABS: Absolute Lymphocytes (CBC) 0.7 K/uL (0.7-4.9); Basophils % 0.1 % (0-1.3); Hematocrit 26.4 % (39.6-49.0); Lymphocytes % 5.4 % (15.3-44.8)
[2019-10-17] MEDS: ARFORMOTEROL TARTRATE 15 MCG/2 ML VIAL.NEB NEB SCH (07:30)
[2019-10-17 08:20] LABS: Blood Morphology Comment NOT SEEN (NOT SEEN); Platelet Estimate ADEQ; Urine White Blood Cell Casts OK
[2019-10-17] MEDS: FINASTERIDE 5 MG TAB PO SCH (08:32)
[2019-10-17] MEDS: CEFTRIAXONE/SWI 1gm 1 GM/10 ML SYR IV SCH ×2 (08:32→20:10)
[2019-10-17] MEDS: SPIRONOLACTONE 25 MG TABLET PO SCH (08:32)
[2019-10-17] MEDS: CLOPIDOGREL 75 MG TABLET PO SCH (08:33)
[2019-10-17] MEDS: predniSONE 20 MG TAB PO SCH (08:33)
--- NOTE | 2019-10-17 08:49 | P.PN ---
Subjective Date of Service: 10/18/19 Chief Complaint: Status post pneumothorax Subjective: Improving (Patient is doing better denies any shortness of breath or chest pain still has minimal air leak on the chest tube CT scan reviewed. Chest CT did show an anterior pneumothorax multiple pulmonary nodules) Review of Systems Unremarkable Physical Examination - Vital Signs Temperature: 97.6 F Blood Pressure: 145/59 Pulse: 51 Respirations: 18 Pulse Ox (%): 98 - Physical Exam General: Alert, Oriented x3 Neck: Supple Respiratory: Clear to auscultation bilaterally, Diminished Cardiovascular: No edema Assessment & Plan - Problems (Diagnosis) (1) Pneumothorax Current Visit: Yes Status: Acute Plan: Patient admitted with spontaneous pneumothorax is chest x-ray appears to be expanded over CT scan did show some anterior pneumothorax he does have some air leak minimal air leak clamp the chest tube and see if this lung remains inflated on the x-ray will consider iodine pleurodesis CT scan in addition shows multiple lung nodules that needs to be followed up at a later date in view of his age is probably not a good candidate for any treatment or biopsies patient's white count has declined feeling much better no pain Dc steroids change to an inhaler/doubt infection can Dc antibiotics Qualifiers: Pneumothorax type: spontaneous, primary Qualified Code(s): J93.11 - Primary spontaneous pneumothorax
--- NOTE | 2019-10-17 10:17 | RAD REPORT ---
EXAM DESCRIPTION: RAD - Chest Single View - 10/17/2019 9:29 am CLINICAL HISTORY: Follow-up for pneumothorax, chest tube COMPARISON: Chest Single View dated 10/15/2019; Chest Single View dated 10/15/2019; Thorax Wo Con date d 10/16/2019 TECHNIQUE: AP portable chest image was obtained 10/17/2019 9:29 am . FINDINGS: No change in positioning of the right-sided chest tube. Pneumothorax has enlarged since pr ior CT and chest film imaging. Pneumothorax is approximately 30-40%. Any anterior component cannot be adequately assessed. There was a large anterior component on the prior day CT study. No new lung parenchymal process. Spiculated parenchyma in the upper left lung field again noted. No n ew or enlarging pleural effusion. No acute bony abnormality seen. No acute aortic findings suspected. IMPRESSION: Worsening of the pneumothorax since prior day imaging. Pneumothorax is approximately 30- 40%.
--- NOTE | 2019-10-17 11:25 | RAD REPORT ---
EXAM DESCRIPTION: RAD - Chest Single View - 10/17/2019 11:19 am CLINICAL HISTORY: effusion/chest tube Chest pain. COMPARISON: Chest Single View dated 10/17/2019; Chest Single View dated 10/15/2019; Chest Single View dated 10/15/2019; Chest Single View dated 10/15/2019 FINDINGS: Portable technique limits examination quality. Right-sided chest tube remains in place. The tip is directed cephalad. Since the earlier examination, there has been significant reduction in the size of the right apical pneumothorax. Mild linear opaci ties are present in both lung bases likely representing atelectasis. The heart is mildly enlarged in size. IMPRESSION: Significant reduction in size of right apical pneumothorax.
[2019-10-17] MEDS: DULERA 200/5 (MOMETASONE/FORMOTEROL) INHALER IH SCH ×2 (12:23→20:14)
[2019-10-17] MEDS: TAMSULOSIN 0.4 MG SR CAP PO SCH (20:10)
[2019-10-17] MEDS: MIRTAZAPINE 15 MG TAB PO SCH (20:10)
[2019-10-17] MEDS ORDERED: ENOXAPARIN 30 MG/0.3 ML SQ SCH (21:00)
--- NOTE | 2019-10-17 23:31 | PN ---
Subjective: Mr. Tiwari is doing really good. He has no complaints. He is eating properly. He has a chest tube on the right side. Denies any chest pain, nausea, vomiting. Objective: Vital Signs: Blood pressure 147/61, temperature 97.5, pulse is 61. HEENT: No JVD. No carotid bruits. Chest: Clear. The patient is cachectic and frail. He has a chest tube on the right side. Laboratory Data: White count 17616, hemoglobin 8.9, hematocrit 26, BUN 29, creatinine 1.50. Assessment Planning: Spontaneous pneumothorax from chronic obstructive pulmonary disease. On CT sca n, he also has 2 small nodules, but at his age of 88 with extremely frail status, he should not worry about that at this point. The patient's family understands. I have discussed with the patient's kishan garcia yesterday and she is in full agreement with that suggestion. Pneumothorax will be taken care of by Dr. Cedeño with pleurodesis when it is possible. Clinically stable currently. Medications r carlos. NUVIAD/MODL Voice ID: [id number] Report ID: [id number]
[2019-10-18 04:25] VITALS: O2SAT 99
[2019-10-18] MEDS: METOPROLOL TAR 25 MG TAB PO SCH (06:00)
--- NOTE | 2019-10-18 07:56 | RAD REPORT ---
EXAM DESCRIPTION: RAD - Chest Single View - 10/18/2019 5:48 am CLINICAL HISTORY: Follow-up for pneumothorax COMPARISON: Chest Single View dated 10/17/2019 TECHNIQUE: AP portable chest image was obtained 10/18/2019 5:48 am . FINDINGS: No change in positioning of the chest tube. No measurable pneumothorax is seen. An anterio r pneumothorax component can be occult on portable imaging. No new or progressive lung parenchymal pr ocess. No new or enlarging pleural fluid collection. Heart and vasculature are normal. IMPRESSION: No change in positioning of the chest tube. No measurable pneumothorax. Anterior pneumothorax can be occult on a portable supine examination.
[2019-10-18] MEDS ORDERED: MAGNESIUM HYDROXIDE 8% 30 ML PO ONE (08:26)
[2019-10-18] MEDS: SPIRONOLACTONE 25 MG TABLET PO SCH (08:28)
[2019-10-18] MEDS: CLOPIDOGREL 75 MG TABLET PO SCH (08:29)
[2019-10-18] MEDS: CEFTRIAXONE/SWI 1gm 1 GM/10 ML SYR IV SCH (08:29)
[2019-10-18] MEDS: FINASTERIDE 5 MG TAB PO SCH (08:29)
[2019-10-18] MEDS: DULERA 200/5 (MOMETASONE/FORMOTEROL) INHALER IH SCH (08:30)
[2019-10-18] MEDS ORDERED: LOSARTAN POTASSIUM 50 MG TABLET PO SCH (09:00)
--- NOTE | 2019-10-18 09:29 | P.PN ---
Subjective Date of Service: 10/18/19 Chief Complaint: Pneumothorax with significant air leak Patient denies any complaints he has significant air leak the air leak has in fact worsened since yesterday Review of Systems Unremarkable Physical Examination - Vital Signs Temperature: 97.3 F Blood Pressure: 158/67 Pulse: 48 Respirations: 20 Pulse Ox (%): 100 - Physical Exam General: Alert, In no apparent distress, Oriented x3 Respiratory: Clear to auscultation bilaterally Cardiovascular: No edema, Regular rate/rhythm Assessment & Plan - Problems (Diagnosis) (1) Pneumothorax Current Visit: Yes Status: Acute Plan: Patient has a significant air leak his air leak has worsened since yesterday as x-ray shows complete expansion he is on 40 cm of suction denies any complaints Yesterday prior to temporary clamping the air leak was minimal only when he coughed presumably he has significant COPD for the underlying bleb rupture causing his air leak and pneumothorax stable to be transferred to a tertiary care facility Dc antibiotics doubt infection patient also has multiple pulmonary nodules high risk for any biopsies patient has upper lobe bullous changes as typical of COPD patient Qualifiers: Pneumothorax type: spontaneous, primary Qualified Code(s): J93.11 - Primary spontaneous pneumothorax
[2019-10-18 12:26] LABS: Absolute Lymphocytes (CBC) 2.5 K/uL (0.7-4.9); Basophils % 0.5 % (0-1.3); Hematocrit 28.8 % (39.6-49.0); Lymphocytes % 14.3 % (15.3-44.8); RBC Red Blood Cell Count 3.05 M/uL (4.33-5.43)
[2019-10-18 16:41] VITALS: BP 132/56; TEMP 97.7
--- NOTE | 2019-10-19 10:35 | P.DS ---
Admission Date: 10/15/19 Discharge Date: 10/19/19 Disposition: TRANSFER TO [facility] [place] Discharge Condition: SERIOUS Reason for Admission: Status post pneumothorax - Problems (1) CAD (coronary artery disease) Status: Chronic Qualifiers: Coronary Disease-Associated Artery/Lesion type: [place] artery (2) COPD (chronic obstructive pulmonary disease) Status: Chronic (3) BPH (benign prostatic hyperplasia) Status: Chronic Qualifiers: Lower urinary tract symptom presence: symptoms absent Qualified Code(s): N40.0 - Benign prostatic hyperplasia without lower urinary tract symptoms (4) Cachexia Status: Chronic (5) Pneumothorax Status: Acute Qualifiers: Pneumothorax type: spontaneous, primary Qualified Code(s): J93.11 - Primary spontaneous pneumothorax Brief History of Present Illness: MR. NEAL IS A PATIENT WHO IS WELL KNOWN TO ME HAS HISTORY OF COPD, CAD, CACHEXIA FROM AGING COMES WITH SUDDEN DYSPNEA. HE WAS FOUND TO HAVE R SIDE PNEUMOTHORAX. THERE IS NO HISTORY OF INJURY. HE HAS CHEST TUBE NOW AND IS FEELING LOT BETTER. Hospital Course: MR. NEAL WAS TRANSFERRED TO [facility] UNDER CARE OF CT SURGERY HE FAILED TO RECOVER AND PTX GOT WORSE. HE IS FRAIL, CACHECTIC AND RECOVERY PROCESS WILL BE SLOW. Vital Signs/Physical Exam: Temp Pulse Resp BP Pulse Ox 97.7 F 59 18 132/56 L 99 10/18/19 16:00 10/18/19 16:00 10/18/19 16:00 10/18/19 16:00 10/18/19 16:00 Laboratory Data at Discharge: WBC 17.6 K/uL (4.3-10.9) H D 10/18/19 12:02 Hgb 9.5 g/dL (13.6-17.9) L 10/18/19 12:02 Hct 28.8 % (39.6-49.0) L 10/18/19 12:02 Plt Count 484 K/uL (152-406) H 10/18/19 12:02 PT 14.0 SECONDS (9.5-12.5) H 10/15/19 20:30 INR 1.19 10/15/19 20:30 APTT 30.3 SECONDS (24.3-36.9) 10/15/19 20:30 Sodium 137 mmol/L (136-145) 10/15/19 20:30 Potassium 4.3 mmol/L (3.5-5.1) 10/15/19 20:30 BUN 29 mg/dL (7-18) H 10/15/19 20:30 Creatinine 1.50 mg/dL (0.55-1.3) H 10/15/19 20:30 Glucose 211 mg/dL (74-106) H 10/15/19 20:30 Magnesium 2.2 mg/dL (1.8-2.4) 10/15/19 20:30 Total Bilirubin 0.2 mg/dL (0.2-1.0) 10/15/19 20:30 AST 32 U/L (15-37) 10/15/19 20:30 ALT 11 U/L (12-78) L 10/15/19 20:30 Alkaline Phosphatase 221 U/L (45-117) H 10/15/19 20:30 Triglycerides 52 mg/dL (<150) 10/16/19 03:53 Cholesterol 151 mg/dL (<200) 10/16/19 03:53 HDL Cholesterol 71 mg/dL (40-60) H 10/16/19 03:53 Cholesterol/HDL Ratio 2.13 10/16/19 03:53 Lipase 177 U/L (73-393) 10/15/19 20:30 Home Medications: Aspirin 81 mg PO DAILY 10/16/19 Clopidogrel Bisulfate [Plavix*] 75 mg PO DAILY 10/16/19 Finasteride [Proscar*] 5 mg PO DAILY 10/16/19 Mirtazapine 7.5 mg PO BEDTIME 10/16/19 Spironolactone 25 mg PO DAILY 10/16/19 Tamsulosin [Flomax*] 0.4 mg PO BEDTIME 10/16/19
== END 2019-10-18 16:24 | disposition short-term general hospital (02) | DRG 200 ==
LOC: ER 20:27 → ERHOLD 22:25 → 4TH 10-16 00:45
PROVIDERS: ADMIT Internal Medicine; ATTEND Internal Medicine
PROC: 0W9930Z Drainage of Right Pleural Cavity with Drainage Device, Percutaneous Approach (ICD-10-PCS; principal; 2019-10-15)
DX: J93.11 Primary spontaneous pneumothorax (principal); R64 Cachexia; I25.10 Atherosclerotic heart disease of native coronary artery without angina pectoris; J44.9 Chronic obstructive pulmonary disease, unspecified; N40.0 Benign prostatic hyperplasia without lower urinary tract symptoms; Z68.20 Body mass index [BMI] 20.0-20.9, adult; R91.8 Other nonspecific abnormal finding of lung field; Z79.82 Long term (current) use of aspirin; Z95.5 Presence of coronary angioplasty implant and graft
CPT/HCPCS: 36415; 71045; 71250; 80048; 80061; 80076; 82550; 82553; 82947; 83690; 83735; 83880; 84484; 85025; 85610; 85730; 87040; 93005; 96365; 96375; 99291; J0456; J0696; J1650; J2405; J7030; J7512; J7605; J7606